=== PATIENT | male | born 1975 | race American Indian/Alaskan Native ===

== ENCOUNTER 2018-03-27 15:06 | Observation (INO) | payer MEDICAID, OTHER ==
[2018-03-27] MEDS ORDERED: Sodium Chloride 0.9% 10 ML Syringe FLUSH PRN (15:58)
[2018-03-27 16:36] LABS: CHLORIDE,CL 104 mmol/L (101-111); SODIUM,NA 138 mmol/L (135-145)
[2018-03-27] MEDS ORDERED: Iopamidol 612 MG/ML 100 ML Bottle IVPUSH ONE (16:48)
[2018-03-27] MEDS ORDERED: Iopamidol 612 MG/ML 50 ML SDV IVPUSH ONE (16:49)
--- NOTE | 2018-03-27 16:51 | EDM.PDOC ---
ED HPI GENERAL MEDICAL PROBLEM - General Chief Complaint: Abdominal Pain Stated Complaint: 1626 Time Seen by Provider: 03/27/18 15:45 Source of Information: Reports: Patient, Provider (Dr. Zhang), RN, RN Notes Reviewed History Limitations: Reports: No Limitations - History of Present Illness INITIAL COMMENTS - FREE TEXT/NARRATIVE: [facility] with complaint of abdominal pain. States it began last evening after eating. He vomited once last night and again at 0300. He has a history of umbilical hernia and large defect ventral hernia. He denies heads diarrhea. No vomiting since 0300. Denies fever or chills. History of diabetes well controlled. Onset Date: 03/26/18 Duration: Getting Worse Location: Reports: Abdomen Quality: Reports: Ache Severity: Severe Improves with: Reports: None Worsens with: Reports: None Associated Symptoms: Reports: No Other Symptoms Middle Abdominal Pain Score (Numeric/FACES): 5 - Related Data Allergies Allergy/AdvReac Type Severity Reaction Status Date / Time No Known Allergies Allergy Verified 03/27/18 15:30 Home Meds: Home Meds Amitriptyline [Elavil] 10 mg PO BEDTIME 02/19/18 [History] Lisinopril 40 mg PO DAILY 02/19/18 [History] Ranitidine [Zantac] 150 mg PO DAILY 03/27/18 [History] Past Medical History HEENT History: Reports: None Cardiovascular History: Reports: Heart Failure, Hypertension Respiratory History: Reports: None Gastrointestinal History: Reports: GERD Genitourinary History: Reports: None Musculoskeletal History: Reports: None Neurological History: Reports: None Psychiatric History: Reports: None Endocrine/Metabolic History: Reports: Diabetes, Type II Hematologic History: Reports: None Immunologic History: Reports: None Oncologic (Cancer) History: Reports: None Dermatologic History: Reports: None, Other (See Below) Other Dermatologic History: abcess under right arm pit r/t spider bite - Infectious Disease History Infectious Disease History: Reports: Chicken Pox, MRSA - Past Surgical History Head Surgeries/Procedures: Reports: None Social & Family History - Family History Family Medical History: Noncontributory - Tobacco Use Smoking Status *Q: Never Smoker - Caffeine Use Caffeine Use: Reports: None - Recreational Drug Use Recreational Drug Use: Yes Drug Use in Last 12 Months: Yes Recreational Drug Type: Reports: Marijuana/Hashish, Methamphetamine, Other (see below) Other Recreational Drug Type: opiates Recreational Drug Use Frequency: Not Used In Over 5 Months - Living Situation & Occupation Living situation: Reports: with Family Occupation: Unemployed ED ROS GENERAL - Review of Systems Review Of Systems: ROS reveals no pertinent complaints other than HPI. ED EXAM, GI/ABD - Physical Exam Exam: See Below Exam Limited By: No Limitations General Appearance: Obese Eyes: Bilateral: Normal Appearance, EOMI Ears: Normal External Exam, Normal Canal, Hearing Grossly Normal, Normal TMs Nose: Normal Inspection, Normal Mucosa, No Blood Throat/Mouth: Normal Inspection, Normal Lips, Normal Teeth, Normal Gums, Normal Oropharynx, Normal Voice, No Airway Compromise Head: Atraumatic, Normocephalic Neck: Normal Inspection, Supple, Non-Tender, Full Range of Motion Respiratory/Chest: No Respiratory Distress, Lungs Clear, Normal Breath Sounds, No Accessory Muscle Use, Chest Non-Tender Cardiovascular: Normal Peripheral Pulses, Regular Rate, Rhythm, No Edema, No Gallop, No JVD, No Murmur, No Rub GI/Abdominal Exam: Other (large ventral hernia and umbilical hernia. He has tenderness in upper quadrants and epigastrium.) (Male) Exam: Deferred Rectal (Males) Exam: Deferred Back Exam: Normal Inspection, Full Range of Motion, NT Extremities: Normal Inspection, Normal Range of Motion, Non-Tender, Normal Capillary Refill, No Pedal Edema Neurological: Alert Psychiatric: Normal Affect, Normal Mood Skin Exam: Warm, Dry, Intact, Normal Color, No Rash Lymphatic: No Adenopathy Course - Vital Signs Last Recorded V/S: Last Vital Signs Temp 97.8 F 03/27/18 15:30 Pulse 85 03/27/18 17:26 Resp 18 03/27/18 17:26 BP 138/70 03/27/18 17:26 Pulse Ox 99 03/27/18 17:26 - Orders/Labs/Meds Orders: Active Orders 24 hr Category Date Time Status Peripheral IV Care [RC] . DIRECTED Care 03/27/18 15:59 Active Sodium Chloride 0.9% [Normal Saline] 1,000 ml Med 03/27/18 17:16 Active IV .BOLUS Sodium Chloride 0.9% [Saline Flush] Med 03/27/18 15:58 Active 10 ml FLUSH ASDIRECTED PRN Peripheral IV Insertion Adult [OM.PC] Stat Oth 03/27/18 15:59 Ordered Medication Orders Sodium Chloride (Normal Saline) 1,000 mls @ 999 mls/hr IV .BOLUS ONE Stop: 03/27/18 18:16 Last Admin: 03/27/18 17:26 Dose: 999 mls/hr Sodium Chloride (Saline Flush) 10 ml FLUSH ASDIRECTED PRN PRN Reason: Keep Vein Open Last Admin: 03/27/18 16:25 Dose: 10 ml Labs: Laboratory Tests 03/27/18 03/27/18 03/27/18 Range/Units 16:10 16:10 17:00 WBC 7.1 (5.0-10.0) 10^3/uL RBC 5.40 (4.6-6.2) 10^6/uL Hgb 14.2 (14.0-18.0) g/dL Hct 42.9 (40.0-54.0) % MCV 79.4 L (80-100) fL MCH 26.3 L (27.0-34.0) pg MCHC 33.1 (33.0-35.0) g/dL Plt Count 268 (150-450) 10^3/uL Neut % (Auto) 68.9 (42.2-75.2) % Lymph % (Auto) 19.4 L (20.5-50.1) % [place] % (Auto) 7.9 (2-8) % Eos % (Auto) 3.2 H (1.0-3.0) % Baso % (Auto) 0.6 (0.0-1.0) % Sodium 138 (135-145) mmol/L Potassium 4.0 (3.6-5.0) mmol/L Chloride 104 (101-111) mmol/L Carbon Dioxide 25.0 (21.0-31.0) mmol/L Anion Gap 13.0 BUN 17 (7-18) mg/dL Creatinine 0.8 (0.6-1.3) mg/dL Est Cr Clr Drug Dosing 142.30 mL/min Estimated GFR (MDRD) > 60 BUN/Creatinine Ratio 21.25 Glucose 173 H (74-105) mg/dL Lactic Acid 1.1 (0.5-2.2) mmol/L Calcium 8.0 L (8.4-10.2) mg/dl Total Bilirubin 1.1 H (0.2-1.0) mg/dL AST 20 (10-42) IU/L ALT 22 (10-60) IU/L Alkaline Phosphatase 78 (42-121) IU/L Total Protein 7.0 (6.7-8.2) g/dl Albumin 3.1 L (3.2-5.5) g/dl Globulin 3.9 Albumin/Globulin Ratio 0.79 Amylase 52 (28-100) U/L Lipase 27 (22-51) U/L Meds: Medications Generic Name Dose Route Start Last Admin Trade Name Freq PRN Reason Stop Dose Admin Sodium Chloride 1,000 mls @ 999 mls/hr 03/27/18 17:16 03/27/18 17:26 Normal Saline IV 03/27/18 18:16 999 mls/hr .BOLUS ONE Administration Sodium Chloride 10 ml 03/27/18 15:58 03/27/18 16:25 Saline Flush FLUSH 10 ml ASDIRECTED PRN Administration Keep Vein Open Discontinued Medications Generic Name Dose Route Start Last Admin Trade Name Freq PRN Reason Stop Dose Admin Iopamidol 100 ml 03/27/18 16:48 03/27/18 16:59 Isovue-300 (61%) IVPUSH 03/27/18 16:49 100 ml ONETIME ONE Administration Iopamidol 50 ml 03/27/18 16:49 03/27/18 16:59 Isovue-300 (61%) IVPUSH 03/27/18 16:50 50 ml ONETIME ONE Administration - Radiology Interpretation Free Text/Narrative:: Abdominal xray: FINDINGS: Gastrointestinal tract: Small air-fluid levels are present consistent with ileus. Stool and gas are noted within the rectosigmoid colon. Intraperitoneal space: Normal. No free air. Bones/joints: Unremarkable for age. IMPRESSION: Small air-fluid levels are present consistent with ileus. Early small bowel obstruction cannot be totally excluded. Further evaluation is recommended. Thank you for allowing us to participate in the care of your patient. Dictated and Authenticated by: Stephan Corey DO 03/27/2018 2:56 PM Central Time ([place] & [place]) See rad report CT Abdomen/Pelvis with contrast: FINDINGS: Lower thorax: No acute findings. ABDOMEN: Liver: There is a diffuse decrease in hepatic parenchymal density, consistent with mild fatty infiltration. Gallbladder and bile ducts: Normal. No calcified stones. No ductal dilation. Pancreas: The pancreas is normal. Spleen: The spleen is normal. Adrenals: The adrenal glands are normal. Kidneys and ureters: The kidneys are normal. Stomach and bowel: Multiple fluid-filled small bowel loops are present with air- fluid levels consistent with ileus. No definite bowel obstruction as imaged. There is stool present within the colon. Appendix: No evidence of appendicitis. PELVIS: Bladder: The bladder is normal. Reproductive: The prostate and seminal vesicles are normal. ABDOMEN and PELVIS: Intraperitoneal space: Normal. No free air. No significant fluid collection. Bones/joints: The lumbar spine demonstrates moderate degenerative changes at multiple levels. Soft tissues: There is a large lateral wall hernia present measuring up to 12.8 cm. Fat and bowel are present within the hernia. A second left anterior abdominal wall hernia with bowel and fat is present measuring up to 6 cm. Small left inguinal fat and bowel filled hernia is present. Vasculature: The vasculature demonstrates diffuse mild atherosclerotic calcification. Lymph nodes: There are multiple nonspecific nonpathologic but prominent lymph nodes in the mesentery. There are no mesenteric lymph nodes of pathologic dimensions. IMPRESSION: 1. There is a large lateral wall hernia present measuring up to 12.8 cm. Fat and bowel are present within the hernia. 2. A second left anterior abdominal wall hernia with bowel and fat is present measuring up to 6 cm. 3. Small left inguinal fat and bowel filled hernia is present. 4. Multiple fluid-filled small bowel loops are present with air-fluid levels consistent with ileus. 5. No definite bowel obstruction as imaged. Thank you for allowing us to participate in the care of your patient. Dictated and Authenticated by: Stephan Corey DO 03/27/2018 5:38 PM Central Time ([place] & [place]) See rad report - Re-Assessments/Exams Free Text/Narrative Re-Assessment/Exam: 03/27/18 18:05 Discussed patient case with Dr. Isaacs who agreed to accept the patient for admission under observation. Departure - Departure Time of Disposition: 18:05 Disposition: Refer to Observation Condition: Fair Clinical Impression: Ileus, unspecified Ventral hernia Qualifiers: Obstruction and gangrene presence: without obstruction or gangrene Qualified Code(s): K43.9 - Ventral hernia without obstruction or gangrene Umbilical hernia Qualifiers: Obstruction and gangrene presence: without obstruction or gangrene Qualified Code(s): K42.9 - Umbilical hernia without obstruction or gangrene Inguinal hernia Qualifiers: Obstruction and gangrene presence: without obstruction or gangrene Laterality: unspecified laterality Recurrence: not specified as recurrent Qualified Code(s) : K40.90 - Unilateral inguinal hernia, without obstruction or gangrene, not specified as recurrent Abdominal pain Qualifiers: Abdominal location: generalized Qualified Code(s): R10.84 - Generalized abdominal pain - Discharge Information *PRESCRIPTION DRUG MONITORING PROGRAM REVIEWED*: No *COPY OF PRESCRIPTION DRUG MONITORING REPORT IN PATIENT RAVINDER: No Forms: ED Department Discharge - My Orders Last 24 Hours: My Active Orders 03/27/18 15:58 Sodium Chloride 0.9% [Saline Flush] 10 ml FLUSH ASDIRECTED PRN 03/27/18 15:59 Peripheral IV Care [RC] . DIRECTED Peripheral IV Insertion Adult [OM.PC] Stat 03/27/18 17:16 Sodium Chloride 0.9% [Normal Saline] 1,000 ml IV .BOLUS - Assessment/Plan Last 24 Hours: My Active Orders 03/27/18 15:58 Sodium Chloride 0.9% [Saline Flush] 10 ml FLUSH ASDIRECTED PRN 03/27/18 15:59 Peripheral IV Care [RC] . DIRECTED Peripheral IV Insertion Adult [OM.PC] Stat 03/27/18 17:16 Sodium Chloride 0.9% [Normal Saline] 1,000 ml IV .BOLUS
[2018-03-27] MEDS ORDERED: Sodium Chloride 0.9% 1,000 ML IV ONE (17:16)
[2018-03-27] MEDS ORDERED: Ondansetron 4 MG Tab.DIS PO PRN (18:31)
[2018-03-27] MEDS ORDERED: Magnesium Hydroxide 400 MG/5 ML Susp 30 ML Cup PO PRN (18:31)
[2018-03-27] MEDS ORDERED: Docusate Sodium 100 MG Cap PO PRN (18:31)
[2018-03-27] MEDS ORDERED: Bisacodyl 5 MG Tab PO PRN (18:31)
[2018-03-27] MEDS ORDERED: Promethazine 25 MG/ML SDV IM PRN (18:31)
[2018-03-27] MEDS ORDERED: Polyethylene Glycol 3350 Powder 17 GM Packet PO PRN (18:31)
[2018-03-27] MEDS ORDERED: Ondansetron 4 MG/2 ML SDV IVPUSH PRN (18:31)
[2018-03-27] MEDS ORDERED: Promethazine 25 MG Tab PO PRN (18:31)
[2018-03-27] MEDS ORDERED: Acetaminophen 650 MG Supp RECTAL PRN (18:31)
--- NOTE | 2018-03-27 19:00 | PCM.HP ---
H&P History of Present Illness - General Date of Service: 03/27/18 Admit Problem/Dx: Admission Diagnosis/Problem Admission Diagnosis/Problem Ileus Source of Information: Patient, Provider History Limitations: Reports: No Limitations - History of Present Illness Initial Comments - Free Text/Narative: Mr. Lorne Rangel is a 42 y.o male with medical history significant for ventral hernia, large left anterior-lateral hernia, abdominal pain, HTN, and obesity who was sent to the ED from clinic for abdominal pain and finding of ileus on abdominal XR. CT confirmed ileus with no incarceration or strangulation of hernia mentioned in report. He reports intermittent cramping brigida-umbilical abdominal pain that is 6/10 and lasts about 2 hours. Reports he has had this abdominal pain but used to last only 1 hour at a time. Reports associated nausea/vomiting with last episode of emesis around 4 am. Reports he had a small hard bowel movement this morning. Passing flatus. He denies fevers, chills, chest pain, SOB, melena, hematochezia , dysuria, abdominal trauma, or any acute symptoms. Denies tobacco or alcohol use. Has not use any drugs since his incarceration 5 months ago. Middle Abdominal Pain Score (Numeric/FACES): 5 - Related Data Allergies/Adverse Reactions: Allergies Allergy/AdvReac Type Severity Reaction Status Date / Time No Known Allergies Allergy Verified 03/27/18 18:18 Home Medications: Home Meds Amitriptyline [Elavil] 10 mg PO BEDTIME 02/19/18 [History] Lisinopril 40 mg PO DAILY 02/19/18 [History] Ranitidine [Zantac] 150 mg PO DAILY 03/27/18 [History] Past Medical History HEENT History: Reports: None Cardiovascular History: Reports: Heart Failure, Hypertension Respiratory History: Reports: None Gastrointestinal History: Reports: GERD Genitourinary History: Reports: None Musculoskeletal History: Reports: None Neurological History: Reports: None Psychiatric History: Reports: None Endocrine/Metabolic History: Reports: Diabetes, Type II Hematologic History: Reports: None Immunologic History: Reports: None Oncologic (Cancer) History: Reports: None Dermatologic History: Reports: None, Other (See Below) Other Dermatologic History: abcess under right arm pit r/t spider bite - Infectious Disease History Infectious Disease History: Reports: Chicken Pox, MRSA - Past Surgical History Head Surgeries/Procedures: Reports: None Social & Family History - Family History Family Medical History: Noncontributory - Tobacco Use Smoking Status *Q: Never Smoker - Caffeine Use Caffeine Use: Reports: None - Recreational Drug Use Recreational Drug Use: Yes Drug Use in Last 12 Months: Yes Recreational Drug Type: Reports: Marijuana/Hashish, Methamphetamine, Other (see below) Other Recreational Drug Type: opiates Recreational Drug Use Frequency: Not Used In Over 5 Months - Living Situation & Occupation Living situation: Reports: with Family Occupation: Unemployed H&P Review of Systems - Review of Systems: Review Of Systems: ROS reveals no pertinent complaints other than HPI. Exam - Exam Exam: See Below - Vital Signs Vital Signs: Last Vital Signs Temp 97.4 F 03/27/18 18:18 Pulse 87 03/27/18 18:18 Resp 20 03/27/18 18:18 BP 158/84 H 03/27/18 18:18 Pulse Ox 100 03/27/18 18:31 Weight: 274 lb 6.4 oz - Exam Physical Exam Comments:: General: Alert and oriented to place, time and person Head: atraumatic and normocephalic. Eyes: PERRLA, EOMI, anicteric, Ear, Nose and Throat: No gross abnormality found Neck: Supple Respiratory/Chest: CTAB, no wheezes, crackles, rales, or rhonchi; Good air entry bilaterally. No increased work of breathing CVS: RRR, no murmur, rub, or gallop, peripheral pulses palpable. Gastrointestinal/Abd: Abdominal adiposity with pannus, brigida-umbilcal tenderness to palpation, reducible umbilical hernia; large left anterior-lateral hernia. Soft. Normal bowel sounds. Skin: No acute rashes noted. Neuro: Grossly non-focal. No cranial nerve abnormality. Moves all extremities. Psych: Alert and oriented to place time and person. Normal mood, congruent affect, good insight Musculoskeletal: No abnormality noted. Ext: No edema, no ulcers, no tenderness, no size differences, - Patient Data Lab Results Last 24 hrs: Laboratory Results - last 24 hr 03/27/18 03/27/18 03/27/18 Range/Units 16:10 16:10 17:00 WBC 7.1 (5.0-10.0) 10^3/uL RBC 5.40 (4.6-6.2) 10^6/uL Hgb 14.2 (14.0-18.0) g/dL Hct 42.9 (40.0-54.0) % MCV 79.4 L (80-100) fL MCH 26.3 L (27.0-34.0) pg MCHC 33.1 (33.0-35.0) g/dL Plt Count 268 (150-450) 10^3/uL Neut % (Auto) 68.9 (42.2-75.2) % Lymph % (Auto) 19.4 L (20.5-50.1) % [place] % (Auto) 7.9 (2-8) % Eos % (Auto) 3.2 H (1.0-3.0) % Baso % (Auto) 0.6 (0.0-1.0) % Sodium 138 (135-145) mmol/L Potassium 4.0 (3.6-5.0) mmol/L Chloride 104 (101-111) mmol/L Carbon Dioxide 25.0 (21.0-31.0) mmol/L Anion Gap 13.0 BUN 17 (7-18) mg/dL Creatinine 0.8 (0.6-1.3) mg/dL Est Cr Clr Drug Dosing 142.30 mL/min Estimated GFR (MDRD) > 60 BUN/Creatinine Ratio 21.25 Glucose 173 H (74-105) mg/dL Lactic Acid 1.1 (0.5-2.2) mmol/L Calcium 8.0 L (8.4-10.2) mg/dl Total Bilirubin 1.1 H (0.2-1.0) mg/dL AST 20 (10-42) IU/L ALT 22 (10-60) IU/L Alkaline Phosphatase 78 (42-121) IU/L Total Protein 7.0 (6.7-8.2) g/dl Albumin 3.1 L (3.2-5.5) g/dl Globulin 3.9 Albumin/Globulin Ratio 0.79 Amylase 52 (28-100) U/L Lipase 27 (22-51) U/L Result Diagrams: 03/27/18 16:10 03/27/18 16:10 - Problem List (1) Obesity (BMI 35.0-39.9 without comorbidity) SNOMED Code(s): 852065815, 171807579 ICD Code: E66.9 - OBESITY, UNSPECIFIED Status: Acute Current Visit: Yes (2) Abdominal pain SNOMED Code(s): 24160743 ICD Code: R10.9 - UNSPECIFIED ABDOMINAL PAIN Status: Acute Current Visit : Yes Qualifiers: Abdominal location: generalized Qualified Code(s): R10.84 - Generalized abdominal pain (3) Ileus, unspecified SNOMED Code(s): 72304986 ICD Code: K56.7 - ILEUS, UNSPECIFIED Status: Acute Priority: High Current Visit: Yes (4) Inguinal hernia SNOMED Code(s): 001637906 ICD Code: K40.90 - UNIL INGUINAL HERNIA, W/O OBST OR GANGR, NOT SPCF RECUR Status: Acute Current Visit: Yes Qualifiers: Obstruction and gangrene presence: without obstruction or gangrene Laterality: unspecified laterality Recurrence: not specified as recurrent Qualified Code(s): K40.90 - Unilateral inguinal hernia, without obstruction or gangrene, not specified as recurrent (5) Umbilical hernia SNOMED Code(s): 603152779 ICD Code: K42.9 - UMBILICAL HERNIA WITHOUT OBSTRUCTION OR GANGRENE Status: Acute Current Visit: Yes Qualifiers: Obstruction and gangrene presence: without obstruction or gangrene Qualified Code(s): K42.9 - Umbilical hernia without obstruction or gangrene Problem List Initiated/Reviewed/Updated: Yes Orders Last 24hrs: Active Orders 24 hr Category Date Time Status Patient Status [ADT] Routine ADT 03/27/18 18:31 Active Blood Glucose Check, Bedside [RC] QIDACANDBED Care 03/27/18 18:31 Active Intake and Output [RC] QSHIFT Care 03/27/18 18:32 Active Oxygen Therapy [RC] PRN Care 03/27/18 18:31 Active Peripheral IV Care [RC] 09,21 Care 03/27/18 15:59 Active Up ad Arpita [RC] ASDIRECTED Care 03/27/18 18:31 Active VTE/DVT Education [RC] PER UNIT ROUTINE Care 03/27/18 18:31 Active Vital Signs [RC] Q4H Care 03/27/18 18:31 Active Nothing per Oral Now Diet [DIET] Diet 03/27/18 Dinner Active BASIC METABOLIC PANEL,BMP [CHEM] AM Lab 03/28/18 05:11 Ordered CBC W/O DIFF,HEMOGRAM [HEME] AM Lab 03/28/18 05:11 Ordered MAGNESIUM [CHEM] AM Lab 03/28/18 05:11 Ordered PHOSPHORUS [CHEM] AM Lab 03/28/18 05:11 Ordered Acetaminophen [Tylenol] Med 03/27/18 18:31 Ordered 650 mg RECTAL Q6H PRN Amitriptyline [Elavil] Med 03/27/18 21:00 Ordered 10 mg PO BEDTIME Bisacodyl [Dulcolax] Med 03/27/18 18:31 Ordered 5 mg PO DAILY PRN Docusate Sodium [Colace] Med 03/27/18 18:31 Ordered 100 mg PO BID PRN Docusate Sodium/Sennosides [Senna Plus] Med 03/27/18 18:31 Ordered 1 tab PO BEDTIME PRN Enoxaparin [Lovenox] Med 03/28/18 09:00 Ordered 40 mg SUBCUT DAILY Lactated Ringers [Ringers, Lactated] 1,000 ml Med 03/27/18 18:45 Ordered IV ASDIRECTED Lisinopril [Lisinopril] Med 03/28/18 09:00 Ordered 40 mg PO DAILY Magnesium Hydroxide [Milk of Magnesia] Med 03/27/18 18:31 Ordered 30 ml PO Q12H PRN Ondansetron [Zofran ODT] Med 03/27/18 18:31 Ordered 4 mg PO Q6H PRN Ondansetron [Zofran] Med 03/27/18 18:31 Ordered 4 mg IVPUSH Q6H PRN Polyethylene Glycol 3350 [MiraLAX] Med 03/27/18 18:31 Ordered 17 gm PO DAILY PRN Promethazine [Phenergan] Med 03/27/18 18:31 Ordered 25 mg PO Q6H PRN Promethazine [Phenergan] Med 03/27/18 18:31 Ordered 6.25 mg IM Q6H PRN Ranitidine [Zantac] Med 03/28/18 09:00 Ordered 150 mg PO DAILY Sodium Chloride 0.9% [Saline Flush] Med 03/27/18 15:58 Active 10 ml FLUSH ASDIRECTED PRN Nasogastric Orogastric Tube Insertion [OM.PC] Urgent Oth 03/27/18 18:32 Ordered Peripheral IV Insertion Adult [OM.PC] Stat Oth 03/27/18 15:59 Ordered Resuscitation Status Routine Resus Stat 03/27/18 18:31 Ordered Medication Orders Acetaminophen (Tylenol) 650 mg RECTAL Q6H PRN PRN Reason: Pain (mild 1-3) Amitriptyline HCl (Elavil) 10 mg PO BEDTIME AMANDA Bisacodyl (Dulcolax) 5 mg PO DAILY PRN PRN Reason: Constipation Docusate Sodium (Colace) 100 mg PO BID PRN PRN Reason: Constipation Enoxaparin Sodium (Lovenox) 40 mg SUBCUT DAILY [facility] Lactated Ringer's (Ringers, Lactated) 1,000 mls @ 125 mls/hr IV ASDIRECTED AMANDA Magnesium Hydroxide (Milk Of Magnesia) 30 ml PO Q12H PRN PRN Reason: Constipation Non-Formulary Medication (Lisinopril [Lisinopril]) 40 mg PO DAILY AMANDA Non-Formulary Medication (Ranitidine [Zantac]) 150 mg PO DAILY AMANDA Ondansetron HCl (Zofran Odt) 4 mg PO Q6H PRN PRN Reason: nausea, able to take PO Ondansetron HCl (Zofran) 4 mg IVPUSH Q6H PRN PRN Reason: Nausea/Vomiting Polyethylene Glycol (Miralax) 17 gm PO DAILY PRN PRN Reason: Constipation Promethazine HCl (Phenergan) 25 mg PO Q6H PRN PRN Reason: nausea, able to take PO Promethazine HCl (Phenergan) 6.25 mg IM Q6H PRN PRN Reason: Nausea/Vomiting Senna/Docusate Sodium (Senna Plus) 1 tab PO BEDTIME PRN PRN Reason: Constipation Sodium Chloride (Saline Flush) 10 ml FLUSH ASDIRECTED PRN PRN Reason: Keep Vein Open Last Admin: 03/27/18 16:25 Dose: 10 ml Assessment/Plan Comment:: #Ileus + Abdominal pain: He reports intermittent cramping brigida-umbilical abdominal pain that is 6/10 and lasts about 2 hours. Reports he has had this abdominal pain but used to last only 1 hour at a time. Reports associated nausea /vomiting with last episode of emesis around 4 am. Reports he had a small hard bowel movement this morning. Passing flatus. He has large ventral hernia and large left anterior-lateral hernia - NPO - IV hydration - serial bowel exams - Encouraged ambulation - Bowel regimen - NGT placement if nausea recurs or if patient has vomiting - Anti-emetics ordered # Hypertension: - Continue Lisinopril. # Anxiety/Depression: - Continue amitriptyline # Obesity: - Weight loss counseling. DVT PPx: Lovenox GI PPx: Protonix Code status discussed. Patient is Full Code.
[2018-03-27] MEDS ORDERED: Lactulose Soln 10 GM/15 ML 30 ML UD Cup PO ONE (19:11)
[2018-03-27] MEDS: AMITRIPTYLINE 10 MG PO SCH (20:31)
[2018-03-27] MEDS: Lactated Ringers 1,000 ML IV SCH (20:32)
[2018-03-27] MEDS ORDERED: Acetaminophen 325 MG Tab PO PRN (21:58)
[2018-03-28] MEDS: Lactated Ringers 1,000 ML IV SCH ×2 (04:28→15:26)
[2018-03-28 06:38] LABS: ANION GAP 12.6; CHLORIDE,CL 106 mmol/L (101-111); SODIUM,NA 139 mmol/L (135-145)
[2018-03-28] MEDS: RANITIDINE 150 MG PO SCH (08:09)
[2018-03-28] MEDS: Enoxaparin 40 MG/0.4 ML Syringe SUBCUT SCH (08:09)
[2018-03-28] MEDS: LISINOPRIL 40 MG PO SCH (08:09)
--- NOTE | 2018-03-28 13:14 | PCM.PN ---
- General Info Date of Service: 03/28/18 Admission Dx/Problem (Free Text): Admission Diagnosis/Problem Admission Diagnosis/Problem Ileus Functional Status: Reports: Pain Controlled - Review of Systems General: Reports: No Symptoms HEENT: Reports: No Symptoms Pulmonary: Reports: No Symptoms Cardiovascular: Reports: No Symptoms Gastrointestinal: Reports: Abdominal Pain (Decreased) Genitourinary: Reports: No Symptoms Musculoskeletal: Reports: No Symptoms Skin: Reports: No Symptoms Neurological: Reports: No Symptoms Psychiatric: Reports: No Symptoms - Patient Data Vitals - Most Recent: Last Vital Signs Temp 98.6 F 03/28/18 11:26 Pulse 87 03/28/18 11:26 Resp 18 03/28/18 11:26 BP 145/85 H 03/28/18 11:26 Pulse Ox 100 03/28/18 11:26 Weight - Most Recent: 274 lb 6.4 oz Lab Results Last 24 Hours: Laboratory Results - last 24 hr 03/27/18 03/27/18 03/27/18 Range/Units 16:10 16:10 17:00 WBC 7.1 (5.0-10.0) 10^3/uL RBC 5.40 (4.6-6.2) 10^6/uL Hgb 14.2 (14.0-18.0) g/dL Hct 42.9 (40.0-54.0) % MCV 79.4 L (80-100) fL MCH 26.3 L (27.0-34.0) pg MCHC 33.1 (33.0-35.0) g/dL Plt Count 268 (150-450) 10^3/uL Neut % (Auto) 68.9 (42.2-75.2) % Lymph % (Auto) 19.4 L (20.5-50.1) % [place] % (Auto) 7.9 (2-8) % Eos % (Auto) 3.2 H (1.0-3.0) % Baso % (Auto) 0.6 (0.0-1.0) % Sodium 138 (135-145) mmol/L Potassium 4.0 (3.6-5.0) mmol/L Chloride 104 (101-111) mmol/L Carbon Dioxide 25.0 (21.0-31.0) mmol/L Anion Gap 13.0 BUN 17 (7-18) mg/dL Creatinine 0.8 (0.6-1.3) mg/dL Est Cr Clr Drug Dosing 142.30 mL/min Estimated GFR (MDRD) > 60 BUN/Creatinine Ratio 21.25 Glucose 173 H (74-105) mg/dL POC Glucose (70-105) mg/dl Lactic Acid 1.1 (0.5-2.2) mmol/L Calcium 8.0 L (8.4-10.2) mg/dl Phosphorus (2.5-4.6) mg/dL Magnesium (1.8-2.5) mg/dL Total Bilirubin 1.1 H (0.2-1.0) mg/dL AST 20 (10-42) IU/L ALT 22 (10-60) IU/L Alkaline Phosphatase 78 (42-121) IU/L Total Protein 7.0 (6.7-8.2) g/dl Albumin 3.1 L (3.2-5.5) g/dl Globulin 3.9 Albumin/Globulin Ratio 0.79 Amylase 52 (28-100) U/L Lipase 27 (22-51) U/L 03/27/18 03/28/18 03/28/18 Range/Units 21:18 06:00 06:00 WBC 5.6 (5.0-10.0) 10^3/uL RBC 4.97 (4.6-6.2) 10^6/uL Hgb 13.0 L (14.0-18.0) g/dL Hct 40.0 (40.0-54.0) % MCV 80.5 (80-100) fL MCH 26.2 L (27.0-34.0) pg MCHC 32.5 L (33.0-35.0) g/dL Plt Count 249 (150-450) 10^3/uL Neut % (Auto) (42.2-75.2) % Lymph % (Auto) (20.5-50.1) % [place] % (Auto) (2-8) % Eos % (Auto) (1.0-3.0) % Baso % (Auto) (0.0-1.0) % Sodium 139 (135-145) mmol/L Potassium 3.6 (3.6-5.0) mmol/L Chloride 106 (101-111) mmol/L Carbon Dioxide 24.0 (21.0-31.0) mmol/L Anion Gap 12.6 BUN 13 (7-18) mg/dL Creatinine 0.6 (0.6-1.3) mg/dL Est Cr Clr Drug Dosing 179.41 mL/min Estimated GFR (MDRD) > 60 BUN/Creatinine Ratio Glucose 117 H (74-105) mg/dL POC Glucose 104 (70-105) mg/dl Lactic Acid (0.5-2.2) mmol/L Calcium 7.7 L (8.4-10.2) mg/dl Phosphorus 2.9 (2.5-4.6) mg/dL Magnesium 1.6 L (1.8-2.5) mg/dL Total Bilirubin (0.2-1.0) mg/dL AST (10-42) IU/L ALT (10-60) IU/L Alkaline Phosphatase (42-121) IU/L Total Protein (6.7-8.2) g/dl Albumin (3.2-5.5) g/dl Globulin Albumin/Globulin Ratio Amylase (28-100) U/L Lipase (22-51) U/L 03/28/18 03/28/18 Range/Units 07:27 10:47 WBC (5.0-10.0) 10^3/uL RBC (4.6-6.2) 10^6/uL Hgb (14.0-18.0) g/dL Hct (40.0-54.0) % MCV (80-100) fL MCH (27.0-34.0) pg MCHC (33.0-35.0) g/dL Plt Count (150-450) 10^3/uL Neut % (Auto) (42.2-75.2) % Lymph % (Auto) (20.5-50.1) % [place] % (Auto) (2-8) % Eos % (Auto) (1.0-3.0) % Baso % (Auto) (0.0-1.0) % Sodium (135-145) mmol/L Potassium (3.6-5.0) mmol/L Chloride (101-111) mmol/L Carbon Dioxide (21.0-31.0) mmol/L Anion Gap BUN (7-18) mg/dL Creatinine (0.6-1.3) mg/dL Est Cr Clr Drug Dosing mL/min Estimated GFR (MDRD) BUN/Creatinine Ratio Glucose (74-105) mg/dL POC Glucose 111 H 146 H (70-105) mg/dl Lactic Acid (0.5-2.2) mmol/L Calcium (8.4-10.2) mg/dl Phosphorus (2.5-4.6) mg/dL Magnesium (1.8-2.5) mg/dL Total Bilirubin (0.2-1.0) mg/dL AST (10-42) IU/L ALT (10-60) IU/L Alkaline Phosphatase (42-121) IU/L Total Protein (6.7-8.2) g/dl Albumin (3.2-5.5) g/dl Globulin Albumin/Globulin Ratio Amylase (28-100) U/L Lipase (22-51) U/L Med Orders - Current: Current Medications Acetaminophen (Tylenol) 650 mg RECTAL Q6H PRN PRN Reason: Pain (mild 1-3) Acetaminophen (Tylenol) 650 mg PO Q6H PRN PRN Reason: Pain Amitriptyline HCl (Elavil) 10 mg PO BEDTIME [facility] Last Admin: 03/27/18 20:31 Dose: 10 mg Bisacodyl (Dulcolax) 5 mg PO DAILY PRN PRN Reason: Constipation Docusate Sodium (Colace) 100 mg PO BID PRN PRN Reason: Constipation Enoxaparin Sodium (Lovenox) 40 mg SUBCUT DAILY [facility] Last Admin: 03/28/18 08:09 Dose: 40 mg Lactated Ringer's (Ringers, Lactated) 1,000 mls @ 125 mls/hr IV ASDIRECTED [facility] Last Admin: 03/28/18 04:28 Dose: 125 mls/hr Magnesium Hydroxide (Milk Of Magnesia) 30 ml PO Q12H PRN PRN Reason: Constipation Magnesium Oxide (Magnesium Oxide) 500 mg PO BIDM [facility] Last Admin: 03/28/18 10:51 Dose: 500 mg Lisinopril 40mg Tab ( Own Meds ) 0 each PO DAILY [facility] Last Admin: 03/28/18 08:09 Dose: 1 each Ranitidine 150mg (Own Meds ) 0 each PO DAILY [facility] Last Admin: 03/28/18 08:09 Dose: 1 each Ondansetron HCl (Zofran Odt) 4 mg PO Q6H PRN PRN Reason: nausea, able to take PO Ondansetron HCl (Zofran) 4 mg IVPUSH Q6H PRN PRN Reason: Nausea/Vomiting Polyethylene Glycol (Miralax) 17 gm PO DAILY PRN PRN Reason: Constipation Promethazine HCl (Phenergan) 25 mg PO Q6H PRN PRN Reason: nausea, able to take PO Promethazine HCl (Phenergan) 6.25 mg IM Q6H PRN PRN Reason: Nausea/Vomiting Senna/Docusate Sodium (Senna Plus) 1 tab PO BEDTIME PRN PRN Reason: Constipation Sodium Chloride (Saline Flush) 10 ml FLUSH ASDIRECTED PRN PRN Reason: Keep Vein Open Last Admin: 03/27/18 16:25 Dose: 10 ml Discontinued Medications Sodium Chloride (Normal Saline) 1,000 mls @ 999 mls/hr IV .BOLUS ONE Stop: 03/27/18 18:16 Last Admin: 03/27/18 17:26 Dose: 999 mls/hr Iopamidol (Isovue-300 (61%)) 100 ml IVPUSH ONETIME ONE Stop: 03/27/18 16:49 Last Admin: 03/27/18 16:59 Dose: 100 ml Iopamidol (Isovue-300 (61%)) 50 ml IVPUSH ONETIME ONE Stop: 03/27/18 16:50 Last Admin: 03/27/18 16:59 Dose: 50 ml Lactulose (Cephulac) 20 gm PO ONETIME ONE Stop: 03/27/18 19:12 Last Admin: 03/27/18 20:31 Dose: 20 gm - Exam General: Alert, Oriented, Cooperative, No Acute Distress HEENT: Pupils Equal, Mucous Membr. Moist/[place]: Supple Lungs: Clear to Auscultation, Normal Respiratory Effort Cardiovascular: Regular Rate, Regular Rhythm GI/Abdominal Exam: Normal Bowel Sounds, Soft, Non-Tender, Hernia (Large umbilcial hernia, larger left anterior-lateral hernia) Extremities: Normal Inspection, Normal Range of Motion, Non-Tender, No Pedal Edema Peripheral Pulses: 2+: Radial (L), Radial (R), Dorsalis Pedis (R) Skin: Warm, Dry, Intact Neurological: No New Focal Deficit Psy/Mental Status: Alert, Normal Affect, Normal Mood - Problem List & Annotations (1) Obesity (BMI 35.0-39.9 without comorbidity) SNOMED Code(s): 249183761, 792694626 Code(s): E66.9 - OBESITY, UNSPECIFIED Status: Acute Current Visit: Yes (2) Abdominal pain SNOMED Code(s): 51354133 Code(s): R10.9 - UNSPECIFIED ABDOMINAL PAIN Status: Acute Current Visit: Yes Qualifiers: Abdominal location: generalized Qualified Code(s): R10.84 - Generalized abdominal pain (3) Ileus, unspecified SNOMED Code(s): 26472340 Code(s): K56.7 - ILEUS, UNSPECIFIED Status: Acute Priority: High Current Visit: Yes (4) Inguinal hernia SNOMED Code(s): 904068885 Code(s): K40.90 - UNIL INGUINAL HERNIA, W/O OBST OR GANGR, NOT SPCF RECUR Status: Acute Current Visit: Yes Qualifiers: Obstruction and gangrene presence: without obstruction or gangrene Laterality: unspecified laterality Recurrence: not specified as recurrent Qualified Code(s): K40.90 - Unilateral inguinal hernia, without obstruction or gangrene, not specified as recurrent (5) Umbilical hernia SNOMED Code(s): 752575992 Code(s): K42.9 - UMBILICAL HERNIA WITHOUT OBSTRUCTION OR GANGRENE Status: Acute Current Visit: Yes Qualifiers: Obstruction and gangrene presence: without obstruction or gangrene Qualified Code(s): K42.9 - Umbilical hernia without obstruction or gangrene - Problem List Review Problem List Initiated/Reviewed/Updated: Yes - My Orders Last 24 Hours: My Active Orders 03/27/18 18:31 Patient Status [ADT] Routine Blood Glucose Check, Bedside [RC] QIDACANDBED Oxygen Therapy [RC] PRN Up ad [place]pita [RC] ASDIRECTED VTE/DVT Education [RC] PER UNIT ROUTINE Vital Signs [RC] 04,08,12,16,20 Acetaminophen [Tylenol] 650 mg RECTAL Q6H PRN Bisacodyl [Dulcolax] 5 mg PO DAILY PRN Docusate Sodium [Colace] 100 mg PO BID PRN Docusate Sodium/Sennosides [Senna Plus] 1 tab PO BEDTIME PRN Magnesium Hydroxide [Milk of Magnesia] 30 ml PO Q12H PRN Ondansetron [Zofran ODT] 4 mg PO Q6H PRN Ondansetron [Zofran] 4 mg IVPUSH Q6H PRN Polyethylene Glycol 3350 [MiraLAX] 17 gm PO DAILY PRN Promethazine [Phenergan] 25 mg PO Q6H PRN Promethazine [Phenergan] 6.25 mg IM Q6H PRN Resuscitation Status Routine 03/27/18 18:32 Intake and Output [RC] QSHIFT Nasogastric Orogastric Tube Insertion [OM.PC] Urgent 03/27/18 18:45 Lactated Ringers [Ringers, Lactated] 1,000 ml IV ASDIRECTED 03/27/18 21:00 Amitriptyline [Elavil] 10 mg PO BEDTIME 03/27/18 21:58 Acetaminophen [Tylenol] 650 mg PO Q6H PRN 03/27/18 22:36 Communication Order [RC] PRN 03/28/18 09:00 Enoxaparin [Lovenox] 40 mg SUBCUT DAILY Non-Formulary Medication [NF Drug] 0 each PO DAILY Non-Formulary Medication [NF Drug] 0 each PO DAILY 03/28/18 09:30 Magnesium Oxide 500 mg PO BIDM 03/28/18 Lunch Clear Liquid Diet [DIET] - Plan Plan:: #Ileus + Abdominal pain: Passing gas. No bowel movement yet. He has large ventral hernia and large left anterior-lateral hernia - Clear liquid diet - IV hydration - serial bowel exams - Encouraged ambulation - Bowel regimen - NGT placement if nausea recurs or if patient has vomiting - Anti-emetics ordered # Hypertension: - Continue Lisinopril. # Anxiety/Depression: - Continue amitriptyline # Obesity: - Weight loss counseling. DVT PPx: Lovenox GI PPx: Protonix Code status discussed. Patient is Full Code.
[2018-03-28] MEDS: AMITRIPTYLINE 10 MG PO SCH (20:42)
[2018-03-29 07:08] LABS: ANION GAP 10.9; CHLORIDE,CL 104 mmol/L (101-111); SODIUM,NA 138 mmol/L (135-145)
[2018-03-29 08:17] VITALS: BP 138/79
[2018-03-29] MEDS: RANITIDINE 150 MG PO SCH (09:52)
[2018-03-29] MEDS: LISINOPRIL 40 MG PO SCH (09:52)
[2018-03-29] MEDS: Enoxaparin 40 MG/0.4 ML Syringe SUBCUT SCH (09:53)
--- NOTE | 2018-03-29 10:18 | PCM.DCSUM1 ---
Discharge Summary - Hospital Course Free Text/Narrative:: Patient presented with abdominal pain and was found to have ileus on abdominal XR and confirmed on CT. There was no strangulation or incarceration of his hernias. He was made NPO. Started passing gas and so was started on clear liquid diet, which was advanced to full liquids. Started having bowel movement. Did not require prescription pain medications during this hospitalization. He is being discharged to follow up with his PCP. HPI Initial Comments: Mr. Lorne Rangel is a 42 y.o male with medical history significant for ventral hernia, large left anterior-lateral hernia, abdominal pain, HTN, and obesity who was sent to the ED from clinic for abdominal pain and finding of ileus on abdominal XR. CT confirmed ileus with no incarceration or strangulation of hernia mentioned in report. He reports intermittent cramping brigida-umbilical abdominal pain that is 6/10 and lasts about 2 hours. Reports he has had this abdominal pain but used to last only 1 hour at a time. Reports associated nausea/vomiting with last episode of emesis around 4 am. Reports he had a small hard bowel movement this morning. Passing flatus. He denies fevers, chills, chest pain, SOB, melena, hematochezia , dysuria, abdominal trauma, or any acute symptoms. Denies tobacco or alcohol use. Has not use any drugs since his incarceration 5 months ago. Middle Abdominal Diagnosis: Stroke: No - Discharge Data Discharge Date: 03/29/18 Discharge Disposition: Home, Self-Care 01 Condition: Good - Discharge Diagnosis/Problem(s) (1) Obesity (BMI 35.0-39.9 without comorbidity) SNOMED Code(s): 016821379, 542986813 ICD Code: E66.9 - OBESITY, UNSPECIFIED Status: Acute Current Visit: Yes (2) Abdominal pain SNOMED Code(s): 18393351 ICD Code: R10.9 - UNSPECIFIED ABDOMINAL PAIN Status: Acute Current Visit : Yes Qualifiers: Abdominal location: generalized Qualified Code(s): R10.84 - Generalized abdominal pain (3) Ileus, unspecified SNOMED Code(s): 09185749 ICD Code: K56.7 - ILEUS, UNSPECIFIED Status: Acute Priority: High Current Visit: Yes (4) Inguinal hernia SNOMED Code(s): 959710733 ICD Code: K40.90 - UNIL INGUINAL HERNIA, W/O OBST OR GANGR, NOT SPCF RECUR Status: Acute Current Visit: Yes Qualifiers: Obstruction and gangrene presence: without obstruction or gangrene Laterality: unspecified laterality Recurrence: not specified as recurrent Qualified Code(s): K40.90 - Unilateral inguinal hernia, without obstruction or gangrene, not specified as recurrent (5) Umbilical hernia SNOMED Code(s): 069132520 ICD Code: K42.9 - UMBILICAL HERNIA WITHOUT OBSTRUCTION OR GANGRENE Status: Acute Current Visit: Yes Qualifiers: Obstruction and gangrene presence: without obstruction or gangrene Qualified Code(s): K42.9 - Umbilical hernia without obstruction or gangrene - Patient Instructions Diet: Heart Healthy Diet Activity: As Tolerated - Discharge Plan *PRESCRIPTION DRUG MONITORING PROGRAM REVIEWED*: No *COPY OF PRESCRIPTION DRUG MONITORING REPORT IN PATIENT RAVINDER: No Home Medications: Home Meds Amitriptyline [Elavil] 10 mg PO BEDTIME 02/19/18 [History] Lisinopril 40 mg PO DAILY 02/19/18 [History] Ranitidine [Zantac] 150 mg PO DAILY 03/27/18 [History] Oxygen Therapy Mode: Room Air Patient Handouts: Ileus - Discharge Summary/Plan Comment DC Time >30 min.: Yes - General Info Date of Service: 03/29/18 Admission Dx/Problem (Free Text: Admission Diagnosis/Problem Admission Diagnosis/Problem Ileus Subjective Update: No acute events overnight. Reports that he is having normal bowel movements. Has been ambulating the hallways. Denies any abdominal pain. Denies fevers, chills, shortness of breath, diarrhea, or any acute symptoms. - Review of Systems Systems Review Comment: As per subjective update above. - Patient Data Vitals - Most Recent: Last Vital Signs Temp 98.4 F 03/29/18 08:00 Pulse 77 03/29/18 08:00 Resp 20 03/29/18 08:00 BP 138/79 03/29/18 08:00 Pulse Ox 97 03/29/18 08:00 Weight - Most Recent: 274 lb 6.4 oz I&O - Last 24 hours: Intake & Output 03/28/18 03/29/18 03/29/18 22:59 06:59 14:59 Intake Total 1975 560 Output Total 575 600 Balance 1400 -600 560 Lab Results - Last 24 hrs: Laboratory Results - last 24 hr 03/28/18 03/28/18 03/28/18 Range/Units 07:27 10:47 16:44 Sodium (135-145) mmol/L Potassium (3.6-5.0) mmol/L Chloride (101-111) mmol/L Carbon Dioxide (21.0-31.0) mmol/L Anion Gap BUN (7-18) mg/dL Creatinine (0.6-1.3) mg/dL Est Cr Clr Drug Dosing mL/min Estimated GFR (MDRD) Glucose (74-105) mg/dL POC Glucose 111 H 146 H 80 (70-105) mg/dl Calcium (8.4-10.2) mg/dl Phosphorus (2.5-4.6) mg/dL Magnesium (1.8-2.5) mg/dL 03/28/18 03/29/18 03/29/18 Range/Units 20:45 06:20 07:16 Sodium 138 (135-145) mmol/L Potassium 3.9 (3.6-5.0) mmol/L Chloride 104 (101-111) mmol/L Carbon Dioxide 27.0 (21.0-31.0) mmol/L Anion Gap 10.9 BUN 9 (7-18) mg/dL Creatinine 0.6 (0.6-1.3) mg/dL Est Cr Clr Drug Dosing 179.41 mL/min Estimated GFR (MDRD) > 60 Glucose 95 (74-105) mg/dL POC Glucose 101 117 H (70-105) mg/dl Calcium 8.0 L (8.4-10.2) mg/dl Phosphorus 3.0 (2.5-4.6) mg/dL Magnesium 1.8 (1.8-2.5) mg/dL Med Orders - Current: Current Medications Acetaminophen (Tylenol) 650 mg RECTAL Q6H PRN PRN Reason: Pain (mild 1-3) Acetaminophen (Tylenol) 650 mg PO Q6H PRN PRN Reason: Pain Amitriptyline HCl (Elavil) 10 mg PO BEDTIME [facility] Last Admin: 03/28/18 20:42 Dose: 10 mg Bisacodyl (Dulcolax) 5 mg PO DAILY PRN PRN Reason: Constipation Docusate Sodium (Colace) 100 mg PO BID PRN PRN Reason: Constipation Enoxaparin Sodium (Lovenox) 40 mg SUBCUT DAILY [facility] Last Admin: 03/29/18 09:53 Dose: 40 mg Lactated Ringer's (Ringers, Lactated) 1,000 mls @ 125 mls/hr IV ASDIRECTED [facility] Last Infusion: 03/29/18 05:04 Dose: Infused Magnesium Hydroxide (Milk Of Magnesia) 30 ml PO Q12H PRN PRN Reason: Constipation Magnesium Oxide (Magnesium Oxide) 500 mg PO BIDM [facility] Last Admin: 03/29/18 09:50 Dose: 500 mg Lisinopril 40mg Tab ( Own Meds ) 0 each PO DAILY [facility] Last Admin: 03/29/18 09:52 Dose: 1 each Ranitidine 150mg (Own Meds ) 0 each PO DAILY [facility] Last Admin: 03/29/18 09:52 Dose: 1 each Ondansetron HCl (Zofran Odt) 4 mg PO Q6H PRN PRN Reason: nausea, able to take PO Ondansetron HCl (Zofran) 4 mg IVPUSH Q6H PRN PRN Reason: Nausea/Vomiting Polyethylene Glycol (Miralax) 17 gm PO DAILY PRN PRN Reason: Constipation Promethazine HCl (Phenergan) 25 mg PO Q6H PRN PRN Reason: nausea, able to take PO Promethazine HCl (Phenergan) 6.25 mg IM Q6H PRN PRN Reason: Nausea/Vomiting Senna/Docusate Sodium (Senna Plus) 1 tab PO BEDTIME PRN PRN Reason: Constipation Sodium Chloride (Saline Flush) 10 ml FLUSH ASDIRECTED PRN PRN Reason: Keep Vein Open Last Admin: 03/27/18 16:25 Dose: 10 ml Discontinued Medications Sodium Chloride (Normal Saline) 1,000 mls @ 999 mls/hr IV .BOLUS ONE Stop: 03/27/18 18:16 Last Admin: 03/27/18 17:26 Dose: 999 mls/hr Iopamidol (Isovue-300 (61%)) 100 ml IVPUSH ONETIME ONE Stop: 03/27/18 16:49 Last Admin: 03/27/18 16:59 Dose: 100 ml Iopamidol (Isovue-300 (61%)) 50 ml IVPUSH ONETIME ONE Stop: 03/27/18 16:50 Last Admin: 03/27/18 16:59 Dose: 50 ml Lactulose (Cephulac) 20 gm PO ONETIME ONE Stop: 03/27/18 19:12 Last Admin: 03/27/18 20:31 Dose: 20 gm - Exam General: Reports: Alert, Oriented HEENT: Reports: Pupils Equal, Pupils Reactive, EOMI, Mucous Membr. Moist/[place] Lungs: Reports: Clear to Auscultation, Normal Respiratory Effort Cardiovascular: Reports: Regular Rate, Regular Rhythm GI/Abdominal Exam: Normal Bowel Sounds, Soft, Non-Tender, Hernia (umbilical hernia, left anterior-lateral hernia, non-tender) Extremities: Normal Inspection, Normal Range of Motion, No Pedal Edema Skin: Reports: Warm, Dry, Intact Neurological: Reports: No New Focal Deficit Psy/Mental Status: Reports: Alert, Normal Affect, Normal Mood
== END 2018-03-29 11:40 | disposition home or self-care (01) ==
LOC: DL.ED 15:06 → DL.MS 18:06 → UNDOADMOB 18:06 → DL.MS 18:31
PROVIDERS: ADMIT Internal Medicine; ATTEND Internal Medicine
DX: K56.7 Ileus, unspecified (principal); K40.90 Unilateral inguinal hernia, without obstruction or gangrene, not specified as recurrent; K42.9 Umbilical hernia without obstruction or gangrene; E66.9 Obesity, unspecified; Z68.36 Body mass index [BMI] 36.0-36.9, adult; I10 Essential (primary) hypertension; F41.9 Anxiety disorder, unspecified; F32.9 Major depressive disorder, single episode, unspecified; Z79.899 Other long term (current) drug therapy
CPT/HCPCS: 36415; 74177; 80048; 80053; 82150; 82962; 83605; 83690; 83735; 84100; 85025; 85027; 96360; 96361; 96372; 99285; A9270; G0378; J1650; J7030; J7120; Q9967

== ENCOUNTER 2021-06-20 17:07 | Emergency (ER) | payer MEDICAID, SELFPAY ==
[2021-06-20 17:37] VITALS: BP 168/91; PULSE 97
[2021-06-20 18:22] LABS: ANION GAP 12.7 mEq/L (7-13); CHLORIDE,CL 102 mmol/L (98-107); SODIUM,NA 138 mmol/L (136-145)
[2021-06-20] MEDS ORDERED: Furosemide 40 MG/4 ML VIAL IVPUSH ONE (18:25)
[2021-06-20] MEDS ORDERED: Magnesium Sulfate/Water 2 GM in Premix Bag 1 BAG IV ONE (18:26)
[2021-06-20 18:38] LABS: CORONAVIRUS COVID-19 NAA NEGATIVE (NEGATIVE); RESPIRATORY SYNCYTIAL VIR NAA NEGATIVE (NEGATIVE)
[2021-06-20 19:09] LABS: AMPHETAMINES,URINE NEGATIVE (NEGATIVE); BARBITURATES,URINE NEGATIVE (NEGATIVE); BENZODIAZEPINE,URINE NEGATIVE (NEGATIVE); MDMA (ECSTASY), URINE NEGATIVE (NEGATIVE); METHADONE,URINE NEGATIVE (NEGATIVE); METHAMPHETAMINES,URINE POSITIVE (NEGATIVE); OPIATES,URINE NEGATIVE (NEGATIVE); OXYCODONE,URINE NEGATIVE (NEGATIVE); PHENCYCLIDINE,URINE NEGATIVE (NEGATIVE); TCA,URINE NEGATIVE (NEGATIVE)
== END 2021-06-20 22:41 | disposition home or self-care (01) ==
LOC: DL.ED 17:07
DX: S91.302A Unspecified open wound, left foot, initial encounter (principal); I11.0 Hypertensive heart disease with heart failure; I50.9 Heart failure, unspecified; E11.9 Type 2 diabetes mellitus without complications; E66.9 Obesity, unspecified; Z68.35 Body mass index [BMI] 35.0-35.9, adult; Z79.899 Other long term (current) drug therapy; Z20.822 Contact with and (suspected) exposure to COVID-19; Z68.44 Body mass index [BMI] 60.0-69.9, adult
CPT/HCPCS: 0241U; 36415; 71045; 73630; 80053; 80305; 80307; 81001; 82947; 83605; 83735; 83880; 84443; 84484; 85025; 85379; 86140; 93005; 96365; 96375; 99285; J1940; J3475